=== PATIENT | male | born 1955 | race Caucasian/White ===

== ENCOUNTER 2019-07-19 14:37 | Day surgery (SDC) | payer OTHER ==
[2019-07-19] VITALS (21 sets, daily range): BP systolic 116–146; BP diastolic 61–79; PULSE 67–68; RESP 15–25
[2019-07-19] MEDS ORDERED: FENTAnyl 50 MCG/ML VIAL ONE (15:40)
[2019-07-19] MEDS ORDERED: MIDAZOLAM 1 MG/ML 2 ML INJ ONE (15:40)
== END 2019-07-19 19:15 ==
LOC: CCL 14:37
PROVIDERS: ATTEND Internal Medicine
DX: I42.9 Cardiomyopathy, unspecified (principal); I10 Essential (primary) hypertension; Z86.73 Personal history of transient ischemic attack (TIA), and cerebral infarction without residual deficits; J96.10 Chronic respiratory failure, unspecified whether with hypoxia or hypercapnia; Z93.1 Gastrostomy status; I48.91 Unspecified atrial fibrillation; E11.9 Type 2 diabetes mellitus without complications; I73.9 Peripheral vascular disease, unspecified; Z79.84 Long term (current) use of oral hypoglycemic drugs; Z79.4 Long term (current) use of insulin
CPT/HCPCS: 93312; 93320; 93325; 94002; J2250; J3010